=== PATIENT | female | born 1960 | race Caucasian/White ===

== ENCOUNTER 2024-08-08 09:09 | Inpatient (IN) | payer BC, SELFPAY ==
[2024-08-06 19:05] VITALS: BMI 31.1
[2024-08-06 19:12] VITALS: BP 164/77
--- NOTE | 2024-08-06 20:18 | ED.GENMED ---
History of Present Illness
General
Chief Complaint: Musculo-Skeletal Complaint
Source: patient
Exam Limitations: none
Time Seen by Provider: 08/06/24 19:55
History of Present Illness
History of Present Illness:
This is a 64 year old female that comes in with c/o right hip pain. States that she was just at the Orthopedic today. States that she had her right hip replace on 07/06 by Physician at [facility]. States that today she was getting her dogs toy out from
under the family coach and she fell. States that her leg went out and she heart a crack. States that she has right hip pain. Denies any fever, chills, chest pain, SOB, abd pain, nausea, vomiting, diarrhea, headache, dizziness, urinary burning.
Past History
Past History
ED Past Medical History: Asthma, Other (Effexor, hot flashes. Back pain, ) and Other (chronic shoulder pain bilaterally,Takes Acetaminophen 1000 mg HS.)
ED Past Surgical History: Appendectomy, Orthopedic (Right hip replacement), Tonsilectomy and Other (Dental implants, Lipoma removed form arm, )
Social History
Tobacco: Former smoker
Alcohol: Occasional
Personal:
Living: with family
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
Review of Systems
Review of Systems
All Other Systems: ROS reviewed and negative except as documented in HPI and ROS
Constitutional: Reports no symptoms; Denies fever or chills
EENT: Reports no symptoms
Respiratory: Reports no symptoms; Denies cough or trouble breathing
Cardiac: Reports no symptoms; Denies chest pain
ABD/GI: Reports constipated; Denies abdominal pain, nausea, vomiting or diarrhea
: Reports no symptoms; Denies dysuria, frequency or urgency
Musculoskeletal: Reports joint pain (Right hip pain)
Skin: Reports no symptoms
Neurological: Reports no symptoms; Denies dizzy or headache
Psychiatric: Reports no symptoms
Phy Exam
General Physical Exam
General Presentation: no apparent distress
General age: appears stated age
General Skin: warm and dry
General Habitus: normal
General Mental: alert
General Hydration: appears well hydrated
ENT Exam
ENT Exam: TM's normal, pharynx normal and neck supple
Eye Exam
Eye Exam: EOMI
Cardiovascular Exam
Cardiovascular Exam: regular rate/rhythm, no murmur and normal peripheral pulses
Pulmonary Exam
Pulmonary Exam: lungs clear, no respiratory distress, no rales, chest non tender, no crackles, no rhonchi, no wheezing and no cough
Gastrointestinal Exam
Gastrointestinal Exam: normal bowel sounds, non tender, soft, no organomegaly, no pulsatile mass and non distended
Musculoskeletal Exam
Musculoskeletal Exam: other (Negative for discomfort with palpation over the right hip. Negative for rotation or shortening. )
Skin Exam
Skin Exam: normal color, warm/dry, no petechia and other (Old Contusion noted on the right thigh. Incision line clean and dry. )
Course
Orders/Labs/Results
Orders:
Orders
08/06/24 20:17
CT Lower Ext W/o Iv Cont Rt Urgent
Comment:
Reason For Exam: Recent hip replacement, Heart crack, Pain
HYDROmorphone [Dilaudid] 0.5 mg IV NOW STA
Ondansetron Injectable [Zofran] 4 mg IV NOW STA
08/06/24 20:26
Complete Blood Count/With Diff Urgent
Comprehensive Metabolic Panel Urgent
Abnormal Lab Results
24
20:26
RBC 3.93 L 10^6/uL
(4.20-5.40)
Hgb 11.9 L g/dL
(12.0-16.0)
Hct 36.1 L %
(37.0-47.0)
Absolute Monos (auto) 0.7 H 10^3/uL
(0.1-0.6)
Lymphocytes % 16.5 L %
(20.5-51.1)
Monocytes % 10.3 H %
(1.7-9.3)
Potassium 2.9 L mmol/L
(3.5-5.1)
Chloride 114 H mmol/L
(98-107)
Carbon Dioxide 20 L mmol/L
(22-30)
Calcium 7.7 L mg/dl
(8.4-10.2)
AST 42 H U/L
(14-36)
ALT 67 H U/L
(0-35)
Total Protein 5.7 L g/dl
(6.3-8.2)
Albumin 3.4 L g/dl
(3.5-5.0)
08/06/24 20:26
08/06/24 20:26
H/H slightly low. Hypokalemia. Chloride slightly elevated. Carbon dioxide slightly low. Hypocalcemia, AST/ALT moderately elevated. Total protein low.
Vital Signs
Initial and Last Documented VS:
Initial Vital Signs
Temp Pulse Resp BP Pulse Ox
97.0 F 69 20 164/77 100
08/06/24 19:12 08/06/24 19:12 08/06/24 19:12 08/06/24 19:12 08/06/24 19:12
Last Documented Vital Signs
Temp Pulse Resp BP Pulse Ox
97.0 F 69 20 164/77 100
08/06/24 19:12 08/06/24 19:12 08/06/24 19:12 08/06/24 19:12 08/06/24 19:12
MDM/Problems Addressed
Differential Diagnosis Includes:
Dislocation prosthesis, Right hip fracture
MDM/Problems Addressed:
This is a 64 year old female that comes in with c/o right hip pain after trying to get her dogs ball under the family coach and she fell. States that her leg went out and she has severe pain.
Will get labs and CT hip.
Back into see patient. Explained that there is a minimally displaced fracture of the greater trochanter. Her Prosthesis is in place. Spoke with Dr. Lizarraga. Patient can be weight baring as possible with walker. Abduction precautions. Follow up
with Dr. Regan when she gets discharged.
Chronic conditions affecting care:
right hip replacement
Acute Exacerbation and/or Progression of Chronic Illness:
Right hip replacement
*Radiology
Radiology exam reviewed: radiology read reviewed (CT- Minimally displaced fracture of the right greater trochanter, without overs extension to the prosthesis. Total right hip arthroplasty noted in place otherwise without overt complication. No
periprosthetic loosening or osteolysis. Suspect small intramuscular hematomas involving the anterior ) and all reviewed NAD by ED Provider (CT cont-proximal right thigh compartment. Overlying subcutaneous scarring, likely postoperative.
Diverticulosis, coli. Evaluation of additional soft tissue structure such as tendons and ligaments is limited by CT. Grossly, no abnormalities are seen. )
*Pulse Oximetry
Patient hypoxic: no
*EKG
Interpreted by ED Provider?: NA
Rate: EKG- N/A
*Skidway Worker Interpretation
Rate: Skidway Worker- N/A
*Critical Care Note
Total Time (30-74mins, 75-104mins- exclusive of procedures): Not Applicable
ED Attending Note
-
Portions of this chart may have been created with voice recognition software.� Occasional wrong word or��sound alike� substitutions may have occurred due to the inherent limitations of voice recognition software.
Discharge Plan
Departure
Patient Disposition: Admit
Date of Disposition: 08/06/24
Time of Disposition: 22:44
Admit to: Med/Surg
Presentation/result/management discussed w/ accepting MD/DO: Hospitalist
Patient with high blood pressure during this ER visit?: Yes
Condition: Good
Covid-19: Not Applicable
Discharge Problem:
Fracture of greater trochanter, Acute hypokalemia
Prescriptions:
No Action
ibuprofen 800 MG tablet
800 mg PO Q6HPRN PRN (Reason: shoulder pain)
Effexor
2 tab PO .AM
Patient Comments:
patient not sure of strength
Effexor
1 tab PO QPM
Patient Comments:
patient not sure of strength
hydrocodone-acetaminophen 5 MG/500 MG tablet
1 tab PO Q4HPRN PRN (Reason: PAIN) Qty: 10 0RF
amoxicillin-pot clavulanate 875 MG/125 MG tablet
1 tab PO Q12 Qty: 10 0RF
oxycodone-acetaminophen [Percocet] 1 EACH tablet
1 ea PO Q6HPRN PRN (Reason: PAIN) Qty: 20 0RF
diazepam [Valium] 5 MG tablet
5 mg PO TIDPRN PRN (Reason: muscle spasm) Qty: 20 0RF
cephalexin [Keflex] 500 MG capsule
500 mg PO TID Qty: 21 0RF
Referrals:
Rita Hicks MD [Family Provider] -
Interventions
Interventions:
*Risk Screen - Suicide Last Done: 08/06/24 19:05
*General Assessment Last Done: 08/06/24 19:05
*Neglect/Abuse Screening Last Done: 08/06/24 19:05
ED- Fall Risk Assessment Last Done: 08/06/24 19:05
*ED COVID-19 Vaccine History Last Done: 08/06/24 19:05
ED-Musculoskeletal Assessment Last Done: 08/06/24 19:05
Discharge Date and Time
Print Language: KAZAKH
[2024-08-06] MEDS: ZOFRAN 4 MG IV (20:26)
[2024-08-06] MEDS: DILAUDID 0.5 MG IV (20:27)
[2024-08-06 20:45] LABS: % Basophils 0.4 % (0-2); % Eosinophils 1.6 % (0-6); % Immature Granulocytes 0.4 % (0-0.5); % Lymphocytes 16.5 % (20.5-51.1); % Monocytes 10.3 % (1.7-9.3); % Neutrophils 70.8 % (42.2-75.2); Absolute Eosinophils 0.1 10^3/uL (0-0.7); Absolute Lymphocytes 1.2 10^3/uL (1.2-3.4); Absolute Monocytes 0.7 10^3/uL (0.1-0.6); Absolute Neutrophils 4.9 10^3/uL (1.4-6.5); Hematocrit 36.1 % (37.0-47.0); Hemoglobin 11.9 g/dL (12.0-16.0); Mean Corpuscular Hgb 30.3 pg (27.0-31.0); Mean Corpuscular Volume 91.9 fL (81.0-99.0); Mean Platelet Volume 9.5 fL (7.4-10.4); Nucleated Red Blood Cells % 0 %; Platelet Count 232 10^3/uL (130-400); Red Blood Cell Count 3.93 10^6/uL (4.20-5.40); Red Cell Dist. Width 13.9 % (11.5-14.5)
[2024-08-06 21:11] LABS: ALT (SGPT) 67 U/L (0-35); AST (SGOT) 42 U/L (14-36); Albumin 3.4 g/dl (3.5-5.0); Alkaline Phosphatase 116 U/L (38-126); Blood Urea Nitrogen 16 mg/dl (7-17); Calcium 7.7 mg/dl (8.4-10.2); Carbon Dioxide 20 mmol/L (22-30); Chloride 114 mmol/L (98-107); Estimated Creatinine Clearance 61 ml/min; Glucose 99 mg/dl (70-99); Potassium 2.9 mmol/L (3.5-5.1); Sodium 143 mmol/L (135-145); Total Bilirubin 0.4 mg/dl (0.2-1.3); Total Protein 5.7 g/dl (6.3-8.2); eGFR > 60.00
--- NOTE | 2024-08-06 23:06 | HPS.HSE ---
Family Physician
-
Family Physician: Rita Hicks MD
Chief Complaint
-
right hip pain
History of Present Illness
64-year-old female past medical history of asthma, hypertension, presenting with right hip pain. Patient was at the orthopedic office today because she had a right hip replaced on 07/06 by [facility] physician. Today she was getting her dog toys out
from under the couch when she fell. Her leg went out and she heard a crack. She has severe right hip pain. Denies fevers or chills, chest pain, shortness of breath, abdominal pain, nausea vomiting, diarrhea, headache, dizziness or urinary
symptoms.
She drinks alcohol socially. Denies smoking.
Medical History
Past Medical History
Past Medical History: Reports Other (asthma, hypertension,)
Past Surgical History: Reports Other (Appendectomy, Orthopedic (Right hip replacement), Tonsilectomy and Other (Dental implants, Lipoma removed form arm, ))
Social History
Tobacco: Non-smoker
Alcohol: Occasional
Drug: None
Family History
Family History: Not pertinent
Allergies / Home Medications
Allergies reflects when Allergies were last updated in [facility].
Home Medications with original date entered in [facility]
Allergy/Medication List:
Allergies
Allergy/AdvReac Type Severity Reaction Status Date / Time
epinephrine Allergy paliptations Verified 08/06/24 19:18
and nausea
w/ tremors
latex [Latex] Allergy Itching/red Verified 08/06/24 19:18
skin
lisinopril Allergy coughing Verified 08/06/24 19:18
tape Allergy Unknown Uncoded 08/06/24 19:18
Home Medications
amoxicillin 500 mg capsule 2,000 mg PO DAILYPRN PRN before dental procedure 08/06/24
aspirin 81 mg chewable tablet 81 mg PO HS 08/06/24
atenolol 25 mg tablet 25 mg PO HS 08/06/24
ibuprofen 200 mg tablet (Advil) 800 mg PO Q8HPRN PRN mild pain 08/06/24
losartan 50 mg tablet 25 mg PO BID 08/06/24
omeprazole 20 mg capsule,delayed release 20 mg PO DAILYPRN PRN heartburn/indigestion 08/06/24
rosuvastatin 10 mg tablet 10 mg PO NOON 08/06/24
Review of Systems
-
History Source: Patient
A 12 point ROS was completed and negative except as noted: Yes
Constitutional: Reports No Symptoms
EENT: Reports No Symptoms
Respiratory: Reports No Symptoms
Cardiac: Reports No Symptoms
Abdomen/GI: Reports No Symptoms
: Reports No Symptoms
Musculoskeletal: Reports See HPI
Skin: Reports No Symptoms
Neurological: Reports No Symptoms
Endocrine: Reports No Symptoms
Hematologic/Lymphatic: Reports No Symptoms
Psych: Reports No Symptoms
Physical Exam
Vital Signs
Vital Signs
Temp Pulse Resp BP Pulse Ox
97.0 F 69 20 164/77 100
08/06/24 19:12 08/06/24 19:12 08/06/24 19:12 08/06/24 19:12 08/06/24 19:12
Physical Exam
General: Well Developed, Well Nourished and No Apparent Distress
HEENT: NormoCephalic, Moist mucous membranes and Atraumatic
Respiratory: Clear
Cardiac: S1/S2 and Regular Rhythm; No Murmur or Rub
GI: Soft, Non Tender, Non Distended and Normal Bowel Sounds; No Organomegaly
Rectal: Deferred by Provider
Musculoskeletal: No Clubbing, No Cyanosis and No Edema
Skin: No Rash
Neuro: Nonfocal/grossly intact
Laboratory Results
-
08/06/24 20:26
08/06/24 20:26
Laboratory Results
Total Bilirubin 0.4 mg/dl (0.2-1.3) 08/06/24 20:26
AST 42 U/L (14-36) H 08/06/24 20:26
ALT 67 U/L (0-35) H 08/06/24 20:26
Alkaline Phosphatase 116 U/L (38-126) 08/06/24 20:26
Data Reviewed
-
Lab Data: Labs Reviewed by me
Old Records: Reviewed
Impression/Plan
-
IMPRESSION:
PLAN:
# Minimally displaced fracture of right greater trochanter
# Recent total right hip arthroplasty on 07/06
-CT shows minimally displaced fracture of the right greater trochanter without overt extension to the prosthesis, total right hip arthroplasty without overt complication, suspected small intramuscular hematoma involving the anterior proximal right
thigh compartment
-Ortho consulted
-Tylenol, ibuprofen, Dilaudid
# Hypokalemia
-Replete potassium
-Check magnesium
Essential hypertension
-Continue atenolol, losartan
-continue aspirin
Hyperlipidemia
-Continue statin
Asthma
Full code
DVT prophylaxis�heparin
Regular diet
[2024-08-06 23:37] VITALS: BP 180/79
[2024-08-06 23:49] LABS: Magnesium 1.7 mg/dl (1.6-2.3)
[2024-08-07] MEDS: KCL 270 MEQ IV (00:11)
[2024-08-07 00:30] VITALS: BP 161/81; BMI 30.1
[2024-08-07] MEDS: DILAUDID 0.5 MG IV ×2 (00:58→06:21)
--- NOTE | 2024-08-07 01:05 | PTCARENOTE ---
Addendum entered by Marie Keys RN 08/07/24 02:41:
Checked with FIELD MAP TECHNICIAN that it is ok for pt to be off tele while KCl infusing.
Original Note:
Pt arrive to [facility] at 0025 from the ED. Pt was pulled over from the stretcher to the bed. Pt came up with KCl infusing. Full head to toe completed. Bed locked an in lowest position. Pt oriented to call strong and room. Care ongoing.
--- NOTE | 2024-08-07 04:38 | PTCARENOTE ---
Pt refusing to get OOB. Pt encouraged to get OOB as activity orders are WBAT. Pt continuing to refuse after education.
[2024-08-07 07:30] VITALS: BP 185/75
[2024-08-07] MEDS: HEPARIN 5000 UNITS SC ×2 (07:42→20:28)
[2024-08-07] MEDS: COZAAR 25 MG PO ×2 (07:42→20:28)
[2024-08-07 08:14] LABS: % Basophils 0.3 % (0-2); % Eosinophils 1.3 % (0-6); % Immature Granulocytes 0.4 % (0-0.5); % Lymphocytes 21.4 % (20.5-51.1); % Monocytes 10.4 % (1.7-9.3); % Neutrophils 66.2 % (42.2-75.2); Absolute Eosinophils 0.1 10^3/uL (0-0.7); Absolute Lymphocytes 1.5 10^3/uL (1.2-3.4); Absolute Monocytes 0.7 10^3/uL (0.1-0.6); Absolute Neutrophils 4.7 10^3/uL (1.4-6.5); Hematocrit 39.2 % (37.0-47.0); Mean Corp Hgb Conc. 33.2 g/dL (33.0-37.0); Mean Corpuscular Hgb 31.3 pg (27.0-31.0); Mean Corpuscular Volume 94.5 fL (81.0-99.0); Mean Platelet Volume 10.1 fL (7.4-10.4); Nucleated Red Blood Cells % 0 %; Platelet Count 237 10^3/uL (130-400); Red Blood Cell Count 4.15 10^6/uL (4.20-5.40); White Blood Cell Count 7.1 10^3/uL (4.8-10.8)
[2024-08-07 08:49] LABS: ALT (SGPT) 83 U/L (0-35); AST (SGOT) 49 U/L (14-36); Albumin 4.6 g/dl (3.5-5.0); Alkaline Phosphatase 140 U/L (38-126); Blood Urea Nitrogen 20 mg/dl (7-17); Calcium 9.6 mg/dl (8.4-10.2); Carbon Dioxide 22 mmol/L (22-30); Chloride 109 mmol/L (98-107); Estimated Creatinine Clearance 68 ml/min; Glucose 110 mg/dl (70-99); Potassium 4.2 mmol/L (3.5-5.1); Sodium 144 mmol/L (135-145); Total Bilirubin 0.6 mg/dl (0.2-1.3); Total Protein 7.3 g/dl (6.3-8.2); eGFR > 60.00
--- NOTE | 2024-08-07 09:30 | CON.ORTHO ---
Consultation - Orthopedics
History
64-year-old female presents emergency department status post fall complains of right hip and leg pain. She subsequently diagnosed with a minimally displaced greater trochanteric right periprosthetic femur fracture and admitted to the hospital
service. Orthopedics is consulted for further evaluation and treatment. She is about 1 month out from right anterior total hip arthroplasty with Dr. Ketan Regan. Patient localizes pain mostly to the lateral aspect of hip groin and thigh
region. She reports that she saw him in office yesterday had been doing well but sustained a mechanical fall at home last night.
Allergies / Home Medications
Past medical history: Asthma, hypertension
Past surgical history: Appendectomy right total hip arthroplasty tonsillectomy, dental implants
Social history: Non-smoker, occasional alcohol use
Family history: Not pertinent
Allergy/AdvReac Type Severity Reaction Status Date / Time
epinephrine Allergy paliptations Verified 08/06/24 19:18
and nausea
w/ tremors
latex [Latex] Allergy Itching/red Verified 08/06/24 19:18
skin
lisinopril Allergy coughing Verified 08/06/24 19:18
tape Allergy Unknown Uncoded 08/06/24 19:18
�Medication �Instructions �Recorded
amoxicillin 500 mg capsule 2,000 mg PO DAILYPRN PRN before 08/06/24
dental procedure
aspirin 81 mg chewable tablet 81 mg PO HS Blood Clot 08/06/24
Prevention/Tx
atenolol 25 mg tablet 25 mg PO HS Blood Pressure 08/06/24
ibuprofen 200 mg tablet (Advil) 800 mg PO Q8HPRN PRN mild pain 08/06/24
losartan 50 mg tablet 25 mg PO BID Blood Pressure 08/06/24
omeprazole 20 mg capsule,delayed 20 mg PO DAILYPRN PRN 08/06/24
release heartburn/indigestion
rosuvastatin 10 mg tablet 10 mg PO NOON High Cholesterol 08/06/24
Vital Signs / Lab Results
Temp Pulse Resp BP Pulse Ox
98.2 F 62 16 185/75 97
08/07/24 07:30 08/07/24 07:30 08/07/24 07:30 08/07/24 07:30 08/07/24 07:30
08/07/24 07:02
08/07/24 07:02
10 point review systems reviewed and negative unless otherwise stated
General: Pleasant, no acute distress at rest in bed
Musculoskeletal right lower extremity
Skin intact, no erythema or ecchymotic staining
Well-healed anterior hip surgical incision
There is tenderness palpation over the lateral trochanteric flare groin
There is pain with passive motion of the right hip
No palpable ipsilateral knee effusion
Positive EHL, FHL, ankle dorsiflexion, plantarflexion
No other areas of bony tenderness palpation crepitation long bones or joints
Diagnostic studies
CT scan right hip shows minimally displaced greater trochanter fracture without extension to the prosthesis.
Assessment / Plan
64-year-old female about 1 month status post right anterior total hip arthroplasty with minimally displaced to the greater trochanter fracture.
Weightbearing as tolerated right lower extremity with walker
Abduction precautions
PT OT
Pain control
Medical management per primary team
DVT prophylaxis: Continue previous regimen as prescribed per her primary surgeon
Follow-up outpatient with Dr. Regan upon discharge
No acute orthopedic intervention planned
[2024-08-07] MEDS: CRESTOR 10 MG PO (11:42)
--- NOTE | 2024-08-07 11:57 | CM ---
Met with pt at bedside
Pt reports she lives with her in a 2 story home; 1 step to enter, 16 steps to 2nd fl
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
DME - rolling walker, single point cane, commode
SNF/HH - no past hx - + outpatient PT - [facility]
PCP - Rita Baptiste
Pharm - [facility] - [address]
PT/OT recs pending
Given OBS letter
Given info for Advance Directive
Plan - TBD after PT/OT evals completed. CM will follow
--- NOTE | 2024-08-07 13:25 | W.PN.HOSP.TC ---
Today's Communication/Plan
-
PT/OT
Assessment / Plan
Assessment / Plan
Gen-AAOx3, NAD
HEENT-NC, AT, anicteric, clear oral mm
Neck-supple
CV-reg, no M, +S1/S2
Lungs-clear B/L
Abd-soft, NT, ND
Ext-no edema
Musculoskeletal-no cyanosis, clubbing
Skin-warm and dry
Neuro-grossly non-focal
Psych-calm, cooperative
Acute traumatic right greater trochanteric fracture -due to fall. Does not extend to prosthesis fortunately. Weightbearing as tolerated per orthopedics. PT/OT. Continue analgesics.
CT and x-ray reviewed. Nondisplaced acute fracture of the right greater trochanter. Right total hip arthroplasty in place without radiographic evidence for hardware loosening. Severe discogenic degenerative disease at L5/S1.
Right thigh intramuscular hematoma -likely traumatic and due to fall. Hold NSAIDs. Continue other analgesics.
Hypokalemia -resolved.
Essential hypertension -uncontrolled pressure noted. Resume home meds.
Hyperlipidemia
Mild intermittent asthma -stable.
Elevated LFTs -hold rosuvastatin given elevated LFTs.
Obesity due to excess calories
Full code
Anticipated Discharge: Within 24 hours
Subjective/Interval History
-
Date of Service: August 07, 2024
Patient seen and examined. Complaining of right anterior thigh pain.
Objective Data
-
Labs:
Laboratory Results
08/07/24
07:02
WBC 7.1
Hgb 13.0
Hct 39.2
Plt Count 237
Sodium 144
Potassium 4.2 D
Chloride 109 H
Carbon Dioxide 22
BUN 20 H
Creatinine 0.8
Glucose 110 H
Calcium 9.6 D
Total Bilirubin 0.6
AST 49 H
ALT 83 H
Alkaline Phosphatase 140 H
Vital Signs:
Vital Signs
Temp Pulse Resp BP Pulse Ox
98.2 F 62 16 185/75 97
08/07/24 07:30 08/07/24 07:30 08/07/24 07:30 08/07/24 07:30 08/07/24 07:30
I&O
08/06/24 08/07/24 08/08/24
06:59 06:59 06:59
Intake Total 720 / 720 240 / 240
Balance 720 / 720 240 / 240
Review of Systems
-
History Source: Patient
All other systems: Reviewed and negative
[2024-08-07] MEDS: ROXICODONE 5 MG PO ×2 (13:44→21:41)
[2024-08-07] MEDS: MIRALAX PO (15:33)
[2024-08-07 15:34] VITALS: BP 141/58
--- NOTE | 2024-08-07 20:00 | PTCARENOTE ---
Pt. tearful stating pain at L hand IV site especially when bending her wrist and mild erythema noted at insertion site. IV removed upon patient request. Pt. M/S level of care with no IV medications ordered at time of removal.
[2024-08-07] MEDS: MIRALAX 17 GRAMS PO (20:46)
[2024-08-07] MEDS: TYLENOL 650 MG PO (20:46)
[2024-08-07] MEDS: MELATONIN 5 MG PO (21:41)
[2024-08-07] MEDS: TENORMIN 25 MG PO (21:41)
[2024-08-07 23:05] VITALS: BP 136/58
[2024-08-08] MEDS: TYLENOL 650 MG PO (04:41)
[2024-08-08] MEDS: ROXICODONE 5 MG PO ×2 (04:42→22:21)
[2024-08-08 06:24] LABS: ALT (SGPT) 68 U/L (0-35); AST (SGOT) 41 U/L (14-36); Albumin 4.3 g/dl (3.5-5.0); Alkaline Phosphatase 110 U/L (38-126); Blood Urea Nitrogen 20 mg/dl (7-17); Calcium 9.5 mg/dl (8.4-10.2); Carbon Dioxide 23 mmol/L (22-30); Chloride 106 mmol/L (98-107); Estimated Creatinine Clearance 60 ml/min; Glucose 95 mg/dl (70-99); Potassium 5.1 mmol/L (3.5-5.1); Sodium 139 mmol/L (135-145); Total Bilirubin 0.8 mg/dl (0.2-1.3); Total Protein 6.9 g/dl (6.3-8.2); eGFR > 60.00
[2024-08-08 07:57] VITALS: BP 126/60
--- NOTE | 2024-08-08 08:54 | W.PN.HOSP.TC ---
Today's Communication/Plan
-
Stop losartan
PT/OT
Assessment / Plan
Assessment / Plan
Gen-AAOx3, NAD
HEENT-NC, AT, anicteric, clear oral mm
Neck-supple
CV-reg, no M, +S1/S2
Lungs-clear B/L
Abd-soft, NT, ND
Ext-no edema
Musculoskeletal-no cyanosis, clubbing
Skin-warm and dry
Neuro-grossly non-focal
Psych-calm, cooperative
Acute traumatic right greater trochanteric fracture -due to fall. Does not extend to prosthesis fortunately. Weightbearing as tolerated per orthopedics. PT/OT. Continue analgesics.
CT and x-ray reviewed. Nondisplaced acute fracture of the right greater trochanter. Right total hip arthroplasty in place without radiographic evidence for hardware loosening. Severe discogenic degenerative disease at L5/S1.
Right thigh intramuscular hematoma -likely traumatic and due to fall. Hold NSAIDs. Continue other analgesics.
Hypokalemia -resolved. Potassium trending up, 5.1 today. Hold losartan.
Essential hypertension -uncontrolled pressure noted. Resume home meds.
Hyperlipidemia
Mild intermittent asthma -stable.
Elevated LFTs -hold rosuvastatin given elevated LFTs.
Obesity due to excess calories
Full code
Anticipated Discharge: 24 - 48 hours
Subjective/Interval History
-
Date of Service: August 08, 2024
Patient seen and examined. Complaining of right thigh pain.
Objective Data
-
Labs:
Laboratory Results
08/08/24
05:11
Sodium 139
Potassium 5.1
Chloride 106
Carbon Dioxide 23
BUN 20 H
Creatinine 0.9
Glucose 95
Calcium 9.5
Total Bilirubin 0.8
AST 41 H
ALT 68 H
Alkaline Phosphatase 110
Vital Signs:
Vital Signs
Temp Pulse Resp BP Pulse Ox
97.8 F 59 14 126/60 98
08/08/24 07:57 08/08/24 07:57 08/08/24 07:57 08/08/24 07:57 08/08/24 07:57
I&O
08/07/24 08/08/24 08/09/24
06:59 06:59 06:59
Intake Total 720 / 720 700 / 700
Balance 720 / 720 700 / 700
Review of Systems
-
History Source: Patient
All other systems: Reviewed and negative
[2024-08-08] MEDS: MIRALAX 17 GRAMS PO ×2 (09:11→20:25)
[2024-08-08] MEDS: HEPARIN 5000 UNITS SC ×2 (09:12→20:25)
[2024-08-08] MEDS: COZAAR PO (09:13)
[2024-08-08 10:12] VITALS: BP 132/68; BP 153/66
[2024-08-08 10:15] VITALS: BP 132/68; BP 153/66
[2024-08-08] MEDS: TYLENOL 1000 MG PO ×2 (10:57→17:52)
[2024-08-08] MEDS: LOW STRENGTH ASPIRIN 81 MG PO (10:57)
[2024-08-08 16:18] VITALS: BP 113/50
[2024-08-08] MEDS: TENORMIN 25 MG PO (22:20)
[2024-08-08] MEDS: MELATONIN 5 MG PO (22:21)
[2024-08-08 23:00] VITALS: BP 151/65
[2024-08-09] MEDS: ROXICODONE 5 MG PO (03:41)
[2024-08-09 08:01] VITALS: BP 131/56
[2024-08-09] MEDS: MIRALAX 17 GRAMS PO (09:13)
[2024-08-09] MEDS: HEPARIN 5000 UNITS SC (09:14)
[2024-08-09] MEDS: LOW STRENGTH ASPIRIN 81 MG PO (09:15)
[2024-08-09] MEDS: TYLENOL 1000 MG PO (09:16)
--- NOTE | 2024-08-09 12:12 | W.PN.HOSP.TC ---
Addendum entered and electronically signed by Alysha Mariano MD 08/09/24 14:27:
total DC time 38 min
Original Note:
Today's Communication/Plan
-
DC Home today with HH
Assessment / Plan
Assessment / Plan
Acute Nondisplaced traumatic right greater trochanteric fracture, due to fall.
CT and x-ray reviewed. Nondisplaced acute fracture of the right greater trochanter. Right total hip arthroplasty in place without radiographic evidence for hardware loosening. Severe discogenic degenerative disease at L5/S1.
Weightbearing as tolerated per orthopedics.
PT/OT cleared for HH.
Continue analgesics.
Right thigh intramuscular hematoma likely traumatic and due to fall.
Hold NSAIDs. Continue other analgesics.
Hypokalemia, resolved.
Potassium was trending up to 5.1.
losartan held.
Essential hypertension
Resumed home meds and BP better controlled
Hyperlipidemia
Mild intermittent asthma -stable.
Elevated LFTs -hold rosuvastatin given elevated LFTs.
Repeat LFT in 1 week, result to PCP
Obesity due to excess calories
Full code
DW CM
Anticipated Discharge: Today
Subjective/Interval History
-
Date of Service: August 09, 2024
Objective Data
-
Vital Signs:
Vital Signs
Temp Pulse Resp BP Pulse Ox
36.3 C 53 14 131/56 95
08/09/24 08:01 08/09/24 08:01 08/09/24 08:01 08/09/24 08:01 08/09/24 08:01
I&O
08/08/24 08/09/24 08/10/24
06:59 06:59 06:59
Intake Total 700 / 700 1680 / 1680
Balance 700 / 700 1680 / 1680
Review of Systems
-
History Source: Patient
All other systems: Reviewed and negative
Physical Exam
-
General: Well Developed, Well Nourished, No Apparent Distress, Comfortable and Conversant; Negative Respiratory Distress
HEENT: Normocephalic, Atraumatic, Nose Appears Normal and Ears Appear Normal; Negative Oxygen
Respiratory: Clear to Auscultation and Non Labored Respirations; Negative Accessory Resp Muscle Use
Cardiac: Regular Rhythm and S1/S2
Skin: Warm and Dry
Neuro: Awake, Alert, Oriented and AO x 3
Psych: Calm and Intact Judgement/Insight
Data Reviewed
-
Labs: Labs Reviewed by me
--- NOTE | 2024-08-09 12:16 | CM ---
CM met with pt bedside
She is hopeful for dc today
VN recommendations and pt in agreement
referral to [facility] via [facility] per pt request
No other dc needs noted
[facility] requested and on chart
Discharge Disposition- home with [facility]- spouse transport
[2024-08-09] MEDS: FLUAD (65 yr+) 2024-2025 FORMULA 0.5 ML IM (13:17)
--- NOTE | 2024-08-09 14:09 | W.DCSUMMARY ---
Discharge Summary
Discharge Data
Date of Admission: 08/08/24
Date of Discharge: 08/09/24
-
Pending Results: No
Hospital Course
Principal Diagnosis:
Acute nondisplaced traumatic right greater trochanteric fracture, due to fall.
Right thigh intramuscular hematoma likely traumatic and due to fall.
Mild hyperkalemia
Elevated LFTs
Chronic Diagnoses:�
Essential hypertension
Hyperlipidemia
Mild intermittent asthma -stable.
Obesity due to excess calories
Consultations:�
Orthopedic
Procedures:�
None
Clinical course:�
This is a 64-year-old female, with past medical history as stated above, who presented with mechanical fall resulting in right hip pain.
Problem 1:
Acute nondisplaced traumatic right greater trochanteric fracture, due to fall.
Given the fracture is nondisplaced in nature, and her recent total right hip arthroplasty is in place without hardware loosening, she does not need surgical intervention per orthopedic.
She can continue weightbearing as tolerated.
She was seen by PT OT and was cleared to return home with home health.
She can continue Tylenol and oxycodone low-dose as needed for pain control.
Problem 2:
Right thigh intramuscular hematoma likely traumatic and due to fall.
Problem 3:
Her potassium trended up to 5.1, and her losartan was held.
She can repeat BMP in 1 week with result to her PCP for the mild hyperkalemia
Problem 4:
Elevated LFTs.
Her AST was noted to be at 40, and ALT at 60.
Her prior to admission Crestor was held.
She can repeat LFT with result to her PCP in 1 week.
As for the rest of her medical problems, they were stable during her hospital stay.
Discharge Plan
-
Patient Disposition: Home with Home Care
Discharge Diagnosis/Procedures: Acute traumatic nondisplaced right greater trochanteric fracture due to fall;
mildly elevated LFT (AST 40, ALT 60)
Condition: Fair
Diet: As tolerated
Activity: As tolerated
Driving Restrictions: Not until seen by your Dr
Blood Work: CMP in 1 week with your PCP
Referrals:
Rita Hicks MD [Family Provider] - in less than 1 week
Additional Discharge Medication Instructions: Hold losartan for now due to mild hyperkalemia at 5.1 (and stable blood pressure)
Hold Crestor due to mildly elevated LFT (AST 40, ALT 60)
Prescriptions:
New
oxycodone 5 mg Tablet
5 mg PO Q4HPRN PRN (Reason: severe pain) Qty: 10 0RF
sennosides-docusate sodium [Senokot-S] 8.6-50 mg tablet
1 tab-cap PO BID PRN (Reason: Constipation) Qty: 60 0RF
Continued
atenolol 25 mg Tablet
25 mg PO HS
ibuprofen [Advil] 200 mg Tablet
800 mg PO Q8HPRN PRN (Reason: mild pain)
omeprazole 20 mg Capsule,Delayed Release(Dr/Ec)
20 mg PO DAILYPRN PRN (Reason: heartburn/indigestion)
aspirin 81 mg Tablet,Chewable
81 mg PO HS
amoxicillin 500 mg Capsule
2,000 mg PO DAILYPRN PRN (Reason: before dental procedure)
Held
losartan 50 mg Tablet
25 mg PO BID
Hold Instructions: Resume on 08/19/24.
rosuvastatin 10 mg Tablet
10 mg PO NOON
Hold Instructions: Resume on 08/14/24.
Discharge Orders:
Discharge Patient (As Directed); Ordered 08/09/24
Ordered By: Alysha Mariano
Discharge Date and Time
Print Language: AMHARIC
== END 2024-08-09 14:30 | disposition home health service (06) | DRG 536 ==
LOC: 2 SOUTH 09:09
PROVIDERS: Clinical Nurse Specialist Family Health; Hospitalist; ADMITTING PHYSICIAN Hospitalist; ATTENDING PHYSICIAN Internal Medicine; CONSULT PHYSICIAN Orthopaedic Surgery; EMERGENCY PHYSICIAN Emergency Medicine; FAMILY PHYSICIAN Family Medicine
DX: S72.114A Nondisplaced fracture of greater trochanter of right femur, initial encounter for closed fracture (principal); W18.39XA Other fall on same level, initial encounter; I10 Essential (primary) hypertension; E78.00 Pure hypercholesterolemia, unspecified; J45.20 Mild intermittent asthma, uncomplicated; E66.09 Other obesity due to excess calories; Z68.30 Body mass index [BMI] 30.0-30.9, adult; E87.5 Hyperkalemia; R79.89 Other specified abnormal findings of blood chemistry; E87.6 Hypokalemia; Z96.641 Presence of right artificial hip joint
CPT/HCPCS: 73502; 73700; 80053; 83735; 85025; 90662; 96374; 96375; 97162; 97166; 99285; G0008

== ENCOUNTER 2024-08-14 12:50 | Emergency (ER) | payer BC, SELFPAY ==
[2024-08-14 12:54] VITALS: BP 136/81
[2024-08-14 13:18] LABS: % Basophils 0.3 % (0-2); % Eosinophils 0.6 % (0-6); % Immature Granulocytes 0.3 % (0-0.5); % Lymphocytes 26.4 % (20.5-51.1); % Monocytes 7.5 % (1.7-9.3); % Neutrophils 64.9 % (42.2-75.2); Absolute Lymphocytes 1.8 10^3/uL (1.2-3.4); Absolute Monocytes 0.5 10^3/uL (0.1-0.6); Absolute Neutrophils 4.5 10^3/uL (1.4-6.5); Hematocrit 39.8 % (37.0-47.0); Hemoglobin 13.2 g/dL (12.0-16.0); Mean Corp Hgb Conc. 33.2 g/dL (33.0-37.0); Mean Corpuscular Hgb 30.8 pg (27.0-31.0); Mean Corpuscular Volume 92.8 fL (81.0-99.0); Mean Platelet Volume 9.3 fL (7.4-10.4); Nucleated Red Blood Cells % 0 %; Platelet Count 273 10^3/uL (130-400); Red Blood Cell Count 4.29 10^6/uL (4.20-5.40); Red Cell Dist. Width 13.7 % (11.5-14.5); White Blood Cell Count 6.9 10^3/uL (4.8-10.8)
[2024-08-14 13:38] LABS: ALT (SGPT) 48 U/L (0-35); AST (SGOT) 36 U/L (14-36); Albumin 4.9 g/dl (3.5-5.0); Alkaline Phosphatase 117 U/L (38-126); Blood Urea Nitrogen 17 mg/dl (7-17); Calcium 10.2 mg/dl (8.4-10.2); Carbon Dioxide 22 mmol/L (22-30); Chloride 104 mmol/L (98-107); Glucose 114 mg/dl (70-99); Potassium 5.1 mmol/L (3.5-5.1); Sodium 137 mmol/L (135-145); Total Bilirubin 0.5 mg/dl (0.2-1.3); Total Protein 7.8 g/dl (6.3-8.2); eGFR > 60.00
--- NOTE | 2024-08-14 14:50 | ED.GENMED ---
History of Present Illness
General
Chief Complaint: Post Operative Problem(s)
Time Seen by Provider: 08/14/24 14:36
History of Present Illness
History of Present Illness:
64-year-old female presents to the emergency department for evaluation of right hip pain. She is approximately 6 weeks status post right total hip arthroplasty performed by [facility]. Earlier this month she sustained a fall resulting in
a periprosthetic trochanteric fracture. She was seen inpatient by orthopedics and no further orthopedic intervention was needed. She did also have hematomas on CT scan at that time involving the anterior thigh. Pain has been improving and she saw
her orthopedist yesterday who felt she was improving well however pain acutely worsened this morning. Denies any fevers but does report chills.
Past History
Past History
ED Past Medical History: Asthma, Other (Effexor, hot flashes. Back pain, ) and Other (chronic shoulder pain bilaterally,Takes Acetaminophen 1000 mg HS.)
ED Past Surgical History: Appendectomy, Orthopedic (Right hip replacement), Tonsilectomy and Other (Dental implants, Lipoma removed form arm, )
Social History
Tobacco: Former smoker
Alcohol: Occasional
Personal:
Living: with family
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
Review of Systems
Review of Systems
Allergies reviewed?: Yes
All Other Systems: ROS reviewed and negative except as documented in HPI and ROS
Phy Exam
Physical Exam
Physical Exam:
GEN: Well appearing, NAD, WDWN
HEENT: Oral mucosa moist, no scleral icterus
Cardiac: Regular rate
Lung: No respiratory distress, no tachypnea
MSK: No gross deformity or injuries. Moderate swelling of the right hip, incision site is clean and dry. Range of motion of the hip is normal with minimal pain.
Skin: Good color, no pallor or jaundice, no rashes
Neuro: AO x3, moves all extremities freely
Psych: Calm, cooperative
Course
Orders/Labs/Results
Orders:
Orders
08/14/24 13:00
Hip, Right 2-3 Views [CR Hip - RT w/wo Pel 2-3 Vw*] Urgent
Comment:
Reason For Exam: pain, hip replaced 07/06/2024
Include a pelvis x-ray?: Yes
08/14/24 13:10
C-Reactive Protein Urgent
Comment: ADD ON
Complete Blood Count/With Diff Urgent
Comprehensive Metabolic Panel Urgent
08/14/24 14:49
Add On- LAB Urgent
Tests Added?: crp
Acetaminophen [Tylenol] 1,000 mg PO NOW STA
Oxycodone [Roxicodone] 5 mg PO NOW STA
Abnormal Lab Results
08/14/24
13:10
Glucose 114 H mg/dl
(70-99)
ALT 48 H U/L
(0-35)
08/14/24 13:10
08/14/24 13:10
Vital Signs
Initial and Last Documented VS:
Initial Vital Signs
Temp Pulse Resp BP Pulse Ox
98.3 F 78 20 136/81 99
08/14/24 12:54 08/14/24 12:54 08/14/24 12:54 08/14/24 12:54 08/14/24 12:54
Last Documented Vital Signs
Temp Pulse Resp BP Pulse Ox
98 F 64 16 165/65 100
08/14/24 15:20 08/14/24 15:20 08/14/24 15:20 08/14/24 15:20 08/14/24 15:20
MDM/Problems Addressed
MDM/Problems Addressed:
Patient's inflammatory markers are unremarkable, no clinical concern for infectious etiology at this time. Recommend she add NSAIDs into her regimen and start PT.
*Critical Care Note
Total Time (30-74mins, 75-104mins- exclusive of procedures): Not Applicable
ED Attending Note
-
Portions of this chart may have been created with voice recognition software.� Occasional wrong word or��sound alike� substitutions may have occurred due to the inherent limitations of voice recognition software.
Discharge Plan
Departure
Patient Disposition: Home (Routine Discharge)
Date of Disposition: 08/14/24
Time of Disposition: 16:26
Patient with high blood pressure during this ER visit?: No
Discharge Problem:
Hematoma of right thigh
Instructions: Postoperative Pain (DC)
Prescriptions:
No Action
losartan 50 mg Tablet
25 mg PO BID
atenolol 25 mg Tablet
25 mg PO HS
ibuprofen [Advil] 200 mg Tablet
800 mg PO Q8HPRN PRN (Reason: mild pain)
omeprazole 20 mg Capsule,Delayed Release(Dr/Ec)
20 mg PO DAILYPRN PRN (Reason: heartburn/indigestion)
aspirin 81 mg Tablet,Chewable
81 mg PO HS
rosuvastatin 10 mg Tablet
10 mg PO NOON
amoxicillin 500 mg Capsule
2,000 mg PO DAILYPRN PRN (Reason: before dental procedure)
oxycodone 5 mg Tablet
5 mg PO Q4HPRN PRN (Reason: severe pain) Qty: 10 0RF
sennosides-docusate sodium [Senokot-S] 8.6-50 mg tablet
1 tab-cap PO BID PRN (Reason: Constipation) Qty: 60 0RF
Referrals:
Rita Hicks MD [Family Provider] -
Activity Restrictions/Additional Instructions:
Ibuprofen 400-600mg every 8 hours for 2 weeks
Continue aspirin
Restart physical therapy
Follow up with your Orthopedist in 1-2 weeks
Interventions
Interventions:
*Risk Screen - Suicide Last Done: 08/14/24 15:10
*General Assessment Last Done: 08/14/24 15:10
*Neglect/Abuse Screening Last Done: 08/14/24 15:10
ED- Fall Risk Assessment Last Done: 08/14/24 15:10
*ED COVID-19 Vaccine History Last Done: 08/14/24 15:10
ED-Skin Assessment Last Done: 08/14/24 15:10
Discharge Date and Time
Print Language: MAURITIAN
[2024-08-14 15:10] VITALS: BP 117/66
[2024-08-14 15:19] VITALS: BMI 29.6
[2024-08-14 15:20] VITALS: BP 165/65
[2024-08-14] MEDS: ROXICODONE 5 MG PO (15:23)
[2024-08-14] MEDS: TYLENOL 1000 MG PO (15:23)
[2024-08-14 15:49] LABS: C-Reactive Protein < 5.00 mg/L (0.0-10.00)
--- NOTE | 2024-08-14 16:05 | EDRN ---
Eliot Aguayo PA in room w/pt at this time.
[2024-08-14 16:52] VITALS: BP 149/58
--- NOTE | 2024-08-14 18:52 | EDRN ---
Pt called at this time w/ discharge plan reviewed w/ pt. This RN informed pt that if she needed a copy that she could come in and get a copy of the plan. pt voiced understanding of the plan over the phone at this eimt.
== END 2024-08-14 17:20 | disposition home or self-care (01) ==
LOC: EMR 12:50
PROVIDERS: Emergency Medicine; EMERGENCY PHYSICIAN Student in an Organized Health Care Education/Training Program; FAMILY PHYSICIAN Family Medicine
DX: S70.11XA Contusion of right thigh, initial encounter (principal); X58.XXXA Exposure to other specified factors, initial encounter; Z87.891 Personal history of nicotine dependence; Z96.641 Presence of right artificial hip joint
CPT/HCPCS: 99284; 73502; 80053; 85025; 86140